=== PATIENT | female | born 1990 | race Caucasian/White ===

== ENCOUNTER 2024-05-03 09:44 | Emergency (ER) | payer OTHER ==
[~2024-05-03] VITALS: Ht 167.6 cm; Wt 95.3 kg
[2024-05-03 10:05] VITALS: TEMP 96.9
[2024-05-03 10:10] VITALS: BP 115/72; O2SAT 96
== END 2024-05-03 10:10 | disposition home or self-care (01) ==
LOC: ER 09:48
DX: S76.912A Strain of unspecified muscles, fascia and tendons at thigh level, left thigh, initial encounter (principal); X58.XXXA Exposure to other specified factors, initial encounter; Y93.89 Activity, other specified; Y92.89 Other specified places as the place of occurrence of the external cause; Y99.8 Other external cause status